=== PATIENT | male | born 1950 | race Caucasian/White ===

== ENCOUNTER 2020-08-03 12:19 | Emergency (ER) | payer MEDICARE, OTHER ==
[2020-08-03] MEDS ORDERED: ACETAMINOPHEN 325 MG TABLET PO ONE (13:18)
--- NOTE | 2020-08-03 13:21 | ER Document Report ---
ED Medical Screen (RME) - General Chief Complaint: Breathing Difficulty Stated Complaint: DIFFICULTY BREATHING Time Seen by Provider: 08/03/20 13:12 Primary Care Provider: Daniel ROMO MD [Primary Care Provider] - Follow up as needed Mode of Arrival: Ambulatory Information source: Patient Notes: HPI; 69-year-old male past medical history significant for hypertension states that he had a routine colonoscopy this morning. States he vomited during the procedure. He was sent to the emergency room for possible aspiration. States they also told him he had a low oxygen sat during the procedure. Patient with a slightly elevated temp in triage. O2 sats 95%. Tachycardic. Blood pressure stable. he denies any recent travel. No COVID-19 exposure. Negative cover test 2 weeks ago. PE: Alert and oriented x3. Mild distress noted. Lungs: Scattered rhonchi no wheezes no rales. Heart: Tachycardic without murmurs, rubs, gallops. I have greeted and performed a rapid initial assessment of this patient. A comprehensive ED assessment and evaluation of the patient, analysis of test results and completion of the medical decision making process will be conducted by additional ED providers. I have specifically instructed the patient or family members with the patient to immediately return to any nursing staff should anything change in the patient's condition or with their chief complaint. TRAVEL OUTSIDE OF THE [place] IN LAST 30 DAYS: No Physical Exam - Vital signs Vitals: Temp Pulse Resp BP Pulse Ox 100.9 F H 111 H 20 127/57 H 95 08/03/20 12:08/03/20 12:08/03/20 12:08/03/20 12:08/03/20 12:31 Course - Vital Signs Vital signs: Temp Pulse Resp BP Pulse Ox 100.9 F H 111 H 20 127/57 H 95 08/03/20 12:08/03/20 12:31 08/03/20 12:31 08/03/20 12:08/03/20 12:31 Doctor's Discharge - Discharge Referrals: Daniel ROMO MD [Primary Care Provider] - Follow up as needed
[2020-08-03 14:03] LABS: HEMATOCRIT 39.2 % (37.9-51.0); MEAN CORPUSCULAR HEMOGLOBIN 31.8 pg (27.0-33.4); MEAN CORPUSCULAR HGB CONC 35.7 g/dL (32.0-36.0); MEAN CORPUSCULAR VOLUME 89 fl (80-97); WHITE BLOOD COUNT 7.7 10^3/uL (4.0-10.5)
[2020-08-03 14:21] LABS: ABSOLUTE LYMPHOCYTES# (MANUAL) 0.4 10^3/uL (0.5-4.7); ABSOLUTE MONOCYTES # (MANUAL) 0.3 10^3/uL (0.1-1.4); BAND NEUTROPHILS % (MANUAL) 3 % (3-5); BASOPHILS % (MANUAL) 0 % (0-2); EOSINOPHILS % (MANUAL) 0 % (0-6); LYMPHOCYTES % (MANUAL) 4 % (13-45); MONOCYTES % (MANUAL) 4 % (3-13); SEGMENTED NEUTROPHILS % (MAN) 88 % (42-78); TOTAL CELLS COUNTED 100
[2020-08-03 14:22] LABS: PLATELET CLUMPS PRESENT; PLATELET COMMENT ADEQUATE; PLATELET COUNT 248 10^3/uL (150-450); RBC MORPHOLOGY COMMENT NORMO-CYTIC/CHROMIC
[2020-08-03 14:24] LABS: ALBUMIN 4.2 g/dL (3.5-5.0); ALKALINE PHOSPHATASE 74 U/L (38-126); ANION GAP 12 (5-19); ASPARTATE AMINO TRANSFERASE 25 U/L (17-59); BILIRUBIN,DIRECT 0.3 mg/dL (0.0-0.4); BILIRUBIN,TOTAL 0.7 mg/dL (0.2-1.3); BLOOD UREA NITROGEN 12 mg/dL (7-20); CALCIUM 9.4 mg/dL (8.4-10.2); CARBON DIOXIDE 25 mmol/L (22-30); CHLORIDE 103 mmol/L (98-107); GLUCOSE 181 mg/dL (75-110); POTASSIUM 4.1 mmol/L (3.6-5.0); TOTAL PROTEIN 6.9 g/dL (6.3-8.2)
--- NOTE | 2020-08-03 14:58 | RADIOLOGY REPORT (SQ) ---
EXAM DESCRIPTION: CHEST 2 VIEWS IMAGES COMPLETED DATE/TIME: 08/03/2020 1:56 pm REASON FOR STUDY: cough COMPARISON: None. EXAM PARAMETERS: NUMBER OF VIEWS: two views TECHNIQUE: Digital Frontal and Lateral radiographic views of the chest acquired. RADIATION DOSE: NA LIMITATIONS: none FINDINGS: LUNGS AND PLEURA: There is slight ill-defined opacification in the left lower lung field. MEDIASTINUM AND HILAR STRUCTURES: No masses or contour abnormalities. HEART AND VASCULAR STRUCTURES: Heart normal size. No evidence for failure. BONES: No acute findings. HARDWARE: None in the chest. OTHER: No other significant finding. IMPRESSION: Cannot exclude a limited left lower lobe or lingular pneumonia. TECHNICAL DOCUMENTATION: JOB ID: [id number] 2010 [employer]- All Rights Reserved Reading location - IP/workstation name: [email or web address]
--- NOTE | 2020-08-03 16:38 | ER Document Report ---
ED General - General Chief Complaint: Shortness Of Breath Stated Complaint: DIFFICULTY BREATHING Time Seen by Provider: 08/03/20 13:12 Primary Care Provider: Daniel ROMO MD [ACTIVE STAFF] - Follow up as needed Mode of Arrival: Ambulatory Information source: Patient TRAVEL OUTSIDE OF THE [place] IN LAST 30 DAYS: No - HPI Notes: Patient presents complaint of shortness of breath. Patient had a colonoscopy performed this morning. As he was being extubated there was concern that he may have aspirated. When he went home he was coughing and felt short of breath. His has a pulse oximeter at home since she has a history of lung cancer. She took his oxygen and it was 88% so they called the entry level accounting clerk. He re commended they come to the emergency department. When patient arrived here he did have fever. He states currently he actually feels better than he did this morning and no longer feels short of breath. He states he does not feel lightheaded or dizzy at this time. He denies any pain. He says initially he had some throat pain but did feels better now and is just "scratchy". He says he has a mild cough if he takes a deep breath. His shortness of breath is currently mild. It is worse slightly with exertion and better with rest. Patient has no chronic medical conditions other than high blood pressure. - Related Data Allergies/Adverse Reactions: No Known Allergies Allergy (Unverified 08/03/20 13:31) Past Medical History - General Information source: Patient - Social History Smoking Status: Former Smoker Frequency of alcohol use: None Drug Abuse: None Family History: Reviewed & Not Pertinent - Past Medical History Cardiac Medical History: Reports: Hx Hypertension Past Surgical History: Reports: Hx Orthopedic Surgery - left middle finger Review of Systems - Review of Systems Constitutional: Chills, Fever Cardiovascular: denies: Chest pain, Palpitations Respiratory: Cough, Short of breath -: Yes All other systems reviewed and negative Physical Exam - Vital signs Vitals: Temp Pulse Resp BP Pulse Ox 100.9 F H 111 H 20 127/57 H 95 08/03/20 12:31 08/03/20 12:31 08/03/20 12:31 08/03/20 12:31 08/03/20 12:31 Interpretation: Febrile - General General appearance: Appears well, Alert - HEENT Head: Normocephalic, Atraumatic Eyes: Normal Pupils: PERRL - Respiratory Respiratory status: No respiratory distress Chest status: Nontender Breath sounds: Rhonchi - Greatest in left lower lobe Chest palpation: Normal - Cardiovascular Rhythm: Regular, Other - Patient was apparently tachycardic in triage but his heart rate is 98 on my exam Heart sounds: Normal auscultation Murmur: No - Abdominal Inspection: Normal Distension: No distension Bowel sounds: Normal Tenderness: Nontender Organomegaly: No organomegaly - Back Back: Normal, Nontender - Extremities General upper extremity: Normal inspection, Nontender, Normal color, Normal ROM, Normal temperature General lower extremity: Normal inspection, Nontender, Normal color, Normal ROM, Normal temperature, Normal weight bearing. No: Aguilar's sign - Neurological Neuro grossly intact: Yes Cognition: Normal Orientation: AAOx4 [place] Coma Scale Eye Opening: Spontaneous [place] Coma Scale Verbal: Oriented [place] Coma Scale Motor: Obeys Commands [place] Coma Scale Total: 15 Speech: Normal Motor strength normal: LUE, RUE, LLE, RLE Sensory: Normal - Psychological Associated symptoms: Normal affect, Normal mood - Skin Skin Temperature: Warm Skin Moisture: Dry Skin Color: Normal Course - Re-evaluation Re-evalutation: 08/03/20 16:35 Patient presents with fever congestion and an early pneumonia on x-ray. This is after having a procedure this morning which he presumably aspirated. Patient states he actually feels better now than he did this morning. I offered the patient admission but patient states he prefers to go home. I did ambulate the patient up and down a long hallway and his saturations stay at 93% and he denies feeling short of breath. He does not have labored breathing. He has no elevated white blood cell count. He is not tachycardic at this time. His blood pressure stable. He has no underlying medical conditions that would suppress his immune system. It seems reasonable, since it is patient preference, to do a trial of antibiotics and inhaled albuterol at home. - Vital Signs Vital signs: Temp Pulse Resp BP Pulse Ox 100.9 F H 111 H 20 127/57 H 95 08/03/20 12:31 08/03/20 12:31 08/03/20 12:31 08/03/20 12:31 08/03/20 12:31 - Laboratory Result Diagrams: 08/03/20 13:37 08/03/20 13:37 Laboratory results interpreted by me: 08/03/20 08/03/20 13:37 13:37 Seg Neuts % (Manual) 88 H Lymphocytes % (Manual) 4 L Abs Lymphs (Manual) 0.4 L Glucose 181 H - Diagnostic Test Radiology reviewed: Image reviewed, Reports reviewed Discharge - Discharge Clinical Impression: Aspiration pneumonia Qualifiers: Aspiration pneumonia type: unspecified Laterality: left Lung location: lower lobe of lung Qualified Code(s): J69.0 - Pneumonitis due to inhalation of food and vomit Condition: Stable Disposition: HOME, SELF-CARE Prescriptions: Levofloxacin [Levaquin 750 mg Tablet] 750 mg PO DAILY #5 tablet Albuterol Sulfate [Proair HFA Inhalation Aerosol 8.5 gm MDI] 2 puff IH Q4H PRN 7 Days #1 mdi PRN Reason: Forms: Return to Work Referrals: Daniel ROMO MD [ACTIVE STAFF] - Follow up tomorrow
[2020-08-03] MEDS ORDERED: LEVOFLOXACIN 750 MG TABLET PO ONE (16:40)
[2020-08-03 16:49] VITALS: BP 134/62
== END 2020-08-03 16:49 | disposition home or self-care (01) ==
LOC: ER 12:19
DX: J69.0 Pneumonitis due to inhalation of food and vomit (principal); R06.02 Shortness of breath; R50.9 Fever, unspecified; R05 Cough; I10 Essential (primary) hypertension; Z98.890 Other specified postprocedural states; Z87.891 Personal history of nicotine dependence
CPT/HCPCS: 99284; 36415; 87070; 87880; 85025; 80053; 71046; A9270 ×2